=== PATIENT | female | born 1995 | race Caucasian/White ===

== ENCOUNTER → 2016-11-10 | Outpatient (REF) | payer OTHER, MEDICAID ==
[~2016-11-10] MED LIST: ACET50TA PO; ANUS2.5C2 TOP; COLA100C3 PO; IRON65TA PO; MOM30SS PO; MOTR200T44 PO; PRENTAB9 PO; ZOLO50TA PO; [UNRECOGNIZED DRUG - CODE] PO
== END ==
LOC: M SFHCPLAZ 15:45
PROVIDERS: ATTEND Nurse Practitioner Family
DX: Z00.00 Encounter for general adult medical examination without abnormal findings (principal); D50.9 Iron deficiency anemia, unspecified; E66.9 Obesity, unspecified; F53 Mental and behavioral disorders associated with the puerperium, not elsewhere classified; Z53.9 Procedure and treatment not carried out, unspecified reason

== ENCOUNTER → 2016-11-16 | Outpatient (REF) | payer OTHER, MEDICAID ==
[2016-11-16 16:05] LABS: BASO % 0.3 % (0.0-1.0); EOS # 0.2 K/mm3 (0.0-0.50); EOS % 2.3 % (0.0-3.0); LARGE UNSTAINED CELL # 0.2 K/mm3 (0.0-0.4); LARGE UNSTAINED CELL % 1.8 % (0.0-4.0); LYMPH # 2.8 K/mm3 (1.5-6.5); LYMPH % 32.8 % (24.0-44.0); MEAN CORPUSCULAR HEMOGLOBIN 31.1 pg (27.0-33.0); MEAN CORPUSCULAR HGB CONC 33.8 g/dl (32.0-36.5); MEAN CORPUSCULAR VOLUME 91.8 fl (80.0-96.0); MONO # 0.4 K/mm3 (0.0-0.8); MONO % 4.9 % (0.0-5.0); NEUTROPHILS # 4.7 K/mm3 (1.8-7.7); PLATELET COUNT, AUTOMATED 327 k/mm3 (150-450); RED CELL DISTRIBUTION WIDTH 12.9 % (11.5-14.5); WHITE BLOOD COUNT 8.1 K/mm3 (4.0-10.0)
[2016-11-16 16:15] LABS: ALBUMIN 3.9 GM/DL (3.2-5.2); ALBUMIN/GLOBULIN RATIO 1.15 (1.00-1.93); ALKALINE PHOSPHATASE 68 U/L (45-117); ALT/SGPT 23 U/L (12-78); ANION GAP 5 MEQ/L (8-16); AST/SGOT 14 U/L (15-37); BILIRUBIN,TOTAL 0.7 MG/DL (0.2-1.0); BLOOD UREA NITROGEN 12 MG/DL (7-18); CALCIUM LEVEL 8.8 MG/DL (8.5-10.1); CARBON DIOXIDE LEVEL 28 MEQ/L (21-32); CHLORIDE LEVEL 107 MEQ/L (98-107); CREATININE FOR GFR 0.56 MG/DL (0.55-1.02); GLUCOSE, FASTING 81 MG/DL (70-105); POTASSIUM SERUM 4.1 MEQ/L (3.5-5.1); SODIUM LEVEL 140 MEQ/L (136-145); TOTAL PROTEIN 7.3 GM/DL (6.4-8.2)
== END ==
LOC: M SFHCPLAZ 14:00
PROVIDERS: ATTEND Nurse Practitioner Family
DX: Z00.00 Encounter for general adult medical examination without abnormal findings (principal); D50.9 Iron deficiency anemia, unspecified; E66.9 Obesity, unspecified; F53 Mental and behavioral disorders associated with the puerperium, not elsewhere classified

== ENCOUNTER → 2016-12-08 | Outpatient (REF) | payer OTHER | LOC: M SFHCPLAZ 10:18 | PROVIDERS: ATTEND Nurse Practitioner Family | DX: J02.9 Acute pharyngitis, unspecified (principal) ==

== ENCOUNTER → 2016-12-30 | Outpatient (CLI) | payer OTHER ==
[2016-12-30 15:55] LABS: ALBUMIN 3.9 GM/DL (3.2-5.2); ALBUMIN/GLOBULIN RATIO 1.08 (1.00-1.93); ALKALINE PHOSPHATASE 77 U/L (45-117); ALT/SGPT 21 U/L (12-78); ANION GAP 11 MEQ/L (8-16); AST/SGOT 12 U/L (15-37); BILIRUBIN,TOTAL 0.8 MG/DL (0.2-1.0); BLOOD UREA NITROGEN 11 MG/DL (7-18); CALCIUM LEVEL 9.3 MG/DL (8.5-10.1); CARBON DIOXIDE LEVEL 24 MEQ/L (21-32); CHLORIDE LEVEL 106 MEQ/L (98-107); CREATININE FOR GFR 0.61 MG/DL (0.55-1.02); GLUCOSE, FASTING 89 MG/DL (70-105); POTASSIUM SERUM 4.2 MEQ/L (3.5-5.1); SODIUM LEVEL 141 MEQ/L (136-145); TOTAL PROTEIN 7.5 GM/DL (6.4-8.2)
== END ==
LOC: M LAB 14:16
PROVIDERS: ATTEND Psychiatry & Neurology Neurology
DX: R51 Headache (principal)

== ENCOUNTER → 2017-03-20 | Outpatient (REF) | payer OTHER, MEDICAID ==
[~2017-03-20] MED LIST changes: -COLA100C3 PO; +COLA100C5 PO
== END ==
LOC: M LAB REF 17:07
PROVIDERS: ATTEND Specialist
DX: Z11.3 Encounter for screening for infections with a predominantly sexual mode of transmission (principal)

== ENCOUNTER → 2017-05-01 | Outpatient (REF) | payer OTHER, MEDICAID ==
[2017-05-01 20:38] LABS: BASO % 0.3 % (0.0-1.0); EOS # 0.1 10^3/uL (0.0-0.50); IMMATURE GRANULOCYTE % 0.4 % (0-0); LYMPH # 3.4 10^3/uL (1.5-6.5); LYMPH % 35.5 % (24.0-44.0); MEAN CORPUSCULAR HEMOGLOBIN 29.6 pg (27.0-33.0); MEAN CORPUSCULAR HGB CONC 32.7 g/dl (32.0-36.5); MEAN CORPUSCULAR VOLUME 90.5 fl (80.0-96.0); MONO # 0.6 10^3/uL (0.0-0.8); MONO % 6.3 % (0.0-5.0); NEUTROPHILS # 5.5 10^3/uL (1.8-7.7); NEUTROPHILS % 56.5 % (36.0-66.0); PLATELET COUNT, AUTOMATED 340 10^3/uL (150-450); RED CELL DISTRIBUTION WIDTH 13.7 % (11.5-14.5); WHITE BLOOD COUNT 9.7 10^3/uL (4.0-10.0)
[2017-05-01 20:40] LABS: ALBUMIN 3.7 GM/DL (3.2-5.2); ALBUMIN/GLOBULIN RATIO 1.09 (1.00-1.93); ALKALINE PHOSPHATASE 87 U/L (45-117); ALT/SGPT 83 U/L (12-78); ANION GAP 7 MEQ/L (8-16); AST/SGOT 26 U/L (15-37); BILIRUBIN,TOTAL 0.4 MG/DL (0.2-1.0); BLOOD UREA NITROGEN 11 MG/DL (7-18); CALCIUM LEVEL 8.8 MG/DL (8.5-10.1); CARBON DIOXIDE LEVEL 24 MEQ/L (21-32); CHLORIDE LEVEL 109 MEQ/L (98-107); CREATININE FOR GFR 0.59 MG/DL (0.55-1.02); FREE T4 0.86 NG/DL (0.78-1.33); GLUCOSE, FASTING 74 MG/DL (70-105); POTASSIUM SERUM 3.8 MEQ/L (3.5-5.1); SODIUM LEVEL 140 MEQ/L (136-145); TOTAL PROTEIN 7.1 GM/DL (6.4-8.2)
== END ==
LOC: M SFHCPLAZ 15:04
PROVIDERS: ATTEND Nurse Practitioner Family
DX: R53.83 Other fatigue (principal)

== ENCOUNTER → 2017-05-03 | Outpatient (REF) | payer OTHER, MEDICAID | LOC: M LAB REF 17:03 | PROVIDERS: ATTEND Obstetrics & Gynecology | DX: Z11.3 Encounter for screening for infections with a predominantly sexual mode of transmission (principal) ==

== ENCOUNTER 2017-05-31 11:30 | Emergency (ER) | payer OTHER, MEDICAID ==
[~2017-05-31] VITALS: Ht 154.9 cm; Wt 71.8 kg
[2017-05-31] MEDS ORDERED: SERT25TA88 (11:38)
[2017-05-31] MEDS ORDERED: ZONI100C2 (11:38)
[2017-05-31] MEDS ORDERED: BACT800T5 PO (13:05)
[2017-05-31 13:15] VITALS: BP 120/76
== END 2017-05-31 13:16 | disposition home or self-care (01) ==
LOC: M ED 11:30
DX: L03.115 Cellulitis of right lower limb (principal)

== ENCOUNTER 2017-06-14 10:30 | Outpatient (RCR) | payer OTHER, MEDICAID | END 2017-07-09 | LOC: M PT 10:30 | DX: Z51.89 Encounter for other specified aftercare (principal); M54.6 Pain in thoracic spine; M25.561 Pain in right knee; M25.562 Pain in left knee; M25.571 Pain in right ankle and joints of right foot; M25.572 Pain in left ankle and joints of left foot; G56.03 Carpal tunnel syndrome, bilateral upper limbs | CPT/HCPCS: 97110 ==

== ENCOUNTER → 2017-06-14 | Outpatient (CLI) | payer OTHER, MEDICAID ==
[~2017-06-14] MED LIST changes: +BACT800T5 PO; +SERT25TA88; +ZONI100C2
--- NOTE | 2017-06-15 06:42 | REP ---
THORACIC SPINE: CLINICAL: Pain. TECHNIQUE: AP, lateral and swimmer's views of the thoracic spine. FINDINGS: Alignment and kyphosis maintained. Vertebral bodies are intact. No acute fracture/compression injury or subluxation. No degenerative changes are appreciated. No obvious congenital abnormalities noted. IMPRESSION: Normal age appropriate thoracic spine radiograph series. Signed by Gustabo Garvey MD 06/16/2017 08:53 A
== END ==
LOC: M RAD 12:20
PROVIDERS: ATTEND Nurse Practitioner Family
DX: M54.6 Pain in thoracic spine (principal)

== ENCOUNTER 2017-07-09 13:14 | Emergency (ER) | payer OTHER, MEDICAID ==
[2017-07-09] MEDS: ONDANSETRON 4 MG ORAL DISINTEGRATING TAB (S0181) PO (16:35)
[2017-07-09 16:53] LABS: BASO % 0.2 % (0.0-1.0); EOS # 0.1 10^3/uL (0.0-0.50); EOS % 1.4 % (0.0-3.0); HEMATOCRIT 37.3 % (36.0-47.0); HEMOGLOBIN 12.1 g/dl (12.0-16.0); IMMATURE GRANULOCYTE % 0.3 % (0-0); LYMPH # 3.2 10^3/uL (1.5-6.5); LYMPH % 34.1 % (24.0-44.0); MEAN CORPUSCULAR HEMOGLOBIN 29.7 pg (27.0-33.0); MEAN CORPUSCULAR HGB CONC 32.4 g/dl (32.0-36.5); MEAN CORPUSCULAR VOLUME 91.6 fl (80.0-96.0); MONO # 0.6 10^3/uL (0.0-0.8); MONO % 6.1 % (0.0-5.0); NEUTROPHILS # 5.4 10^3/uL (1.8-7.7); NEUTROPHILS % 57.9 % (36.0-66.0); PLATELET COUNT, AUTOMATED 281 10^3/uL (150-450); RED BLOOD COUNT 4.07 10^6/uL (4.00-5.40); RED CELL DISTRIBUTION WIDTH 13.2 % (11.5-14.5); WHITE BLOOD COUNT 9.4 10^3/uL (4.0-10.0)
[2017-07-09 17:16] LABS: ALBUMIN 3.6 GM/DL (3.2-5.2); ALBUMIN/GLOBULIN RATIO 1.13 (1.00-1.93); ALKALINE PHOSPHATASE 56 U/L (45-117); ALT/SGPT 22 U/L (12-78); ANION GAP 8 MEQ/L (8-16); AST/SGOT 32 U/L (7-37); BILIRUBIN,DIRECT 0.1 MG/DL (0.0-0.2); BILIRUBIN,TOTAL 0.5 MG/DL (0.2-1.0); BLOOD UREA NITROGEN 16 MG/DL (7-18); CALCIUM LEVEL 8.4 MG/DL (8.5-10.1); CARBON DIOXIDE LEVEL 27 MEQ/L (21-32); CHLORIDE LEVEL 106 MEQ/L (98-107); CREATININE FOR GFR 0.57 MG/DL (0.55-1.02); GLUCOSE, FASTING 83 MG/DL (70-105); LIPASE 81 U/L (73-393); POTASSIUM SERUM 4.3 MEQ/L (3.5-5.1); SODIUM LEVEL 141 MEQ/L (136-145); TOTAL PROTEIN 6.8 GM/DL (6.4-8.2); VALPROIC ACID (DEPAKOTE) 95.7 UG/ML (50.0-100.0)
[2017-07-09] MEDS: metroNIDAZOLE (FLAGYL) 500 MG TAB PO (18:12)
[2017-07-09 19:54] LABS: CHLAMYDIA DNA AMPLIFICATION NEGATIVE (NEGATIVE); GC DNA AMPLIFICATION NEGATIVE (NEGATIVE)
== END 2017-07-09 18:14 | disposition home or self-care (01) ==
LOC: M ED 13:14
DX: N76.0 Acute vaginitis (principal); A08.4 Viral intestinal infection, unspecified; F33.9 Major depressive disorder, recurrent, unspecified; Z79.899 Other long term (current) drug therapy
CPT/HCPCS: 83690

== ENCOUNTER 2017-07-11 11:23 | Outpatient (RCR) | payer OTHER, MEDICAID | END 2017-08-09 | LOC: M PT 11:23 → M OT 07-13 10:45 | DX: Z51.89 Encounter for other specified aftercare (principal); M54.6 Pain in thoracic spine; G56.03 Carpal tunnel syndrome, bilateral upper limbs | CPT/HCPCS: 97110 ==

== ENCOUNTER → 2017-08-16 | Outpatient (REF) | payer OTHER, MEDICAID ==
[2017-08-16 16:06] LABS: CHLAMYDIA DNA AMPLIFICATION NEGATIVE (NEGATIVE); GC DNA AMPLIFICATION NEGATIVE (NEGATIVE)
== END ==
LOC: M LAB REF 12:59
DX: Z11.3 Encounter for screening for infections with a predominantly sexual mode of transmission (principal)

== ENCOUNTER → 2017-09-07 | Outpatient (CLI) | payer OTHER, MEDICAID | LOC: M RAD 09:26 | DX: N83.291 Other ovarian cyst, right side (principal); N83.02 Follicular cyst of left ovary; Q51.3 Bicornate uterus | CPT/HCPCS: 76856 ==

== ENCOUNTER 2017-10-22 12:54 | Emergency (ER) | payer OTHER, MEDICAID | END 2017-10-22 14:21 | disposition home or self-care (01) | LOC: M ED 12:54 | DX: S62.347A Nondisplaced fracture of base of fifth metacarpal bone, left hand, initial encounter for closed fracture (principal); W22.09XA Striking against other stationary object, initial encounter; Y92.89 Other specified places as the place of occurrence of the external cause | CPT/HCPCS: 73130 ==

== ENCOUNTER 2018-03-12 12:18 | Emergency (ER) | payer OTHER, MEDICAID ==
[2018-03-12 13:16] LABS: KETONE, URINE AUTO RFX NEGATIVE (NEGATIVE); MUCUS, URINE RFX SMALL (NEGATIVE); NITRITE, URINE AUTO RFX NEGATIVE (NEGATIVE); RBC, URINE AUTO RFX 2 /HPF (0-3); SPECIFIC GRAVITY UR AUTO RFX 1.023 (1.002-1.035); SQUAM EPITHELIAL CELL UR AURFX 4 /HPF (0-6); WBC, URINE AUTO RFX 9 /HPF (0-3)
[2018-03-12] MEDS: ACETAMINOPHEN TAB 650MG DOSE (2X325MG) PO (13:36)
[2018-03-12] MEDS: NS 1,000 ML IV (13:36)
[2018-03-12 13:37] LABS: LEUKOCYTE ESTERASE UR AUTO RFX 3+ (NEGATIVE)
[2018-03-12 14:14] LABS: HCG, SERUM QUANTITATIVE 66775 MIU/ML
== END 2018-03-12 16:39 | disposition home or self-care (01) ==
LOC: M ED 12:18
DX: O26.891 Other specified pregnancy related conditions, first trimester (principal); M54.5 Low back pain; Z3A.01 Less than 8 weeks gestation of pregnancy
CPT/HCPCS: 76801

== ENCOUNTER 2018-03-19 07:28 | Emergency (ER) | payer OTHER, MEDICAID ==
[2018-03-19 08:11] LABS: BASO % 0.2 % (0.0-1.0); EOS # 0.1 10^3/uL (0.0-0.50); EOS % 0.6 % (0.0-3.0); HEMATOCRIT 33.8 % (36.0-47.0); HEMOGLOBIN 11.4 g/dl (12.0-15.5); IMMATURE GRANULOCYTE % 0.5 % (0-3.0); LYMPH % 24.9 % (24.0-44.0); MEAN CORPUSCULAR HEMOGLOBIN 30.2 pg (27.0-33.0); MEAN CORPUSCULAR HGB CONC 33.7 g/dl (32.0-36.5); MEAN CORPUSCULAR VOLUME 89.4 fl (80.0-96.0); MONO # 0.5 10^3/uL (0.0-0.8); MONO % 5.6 % (0.0-5.0); NEUTROPHILS # 5.5 10^3/uL (1.8-7.7); NEUTROPHILS % 68.2 % (36.0-66.0); PLATELET COUNT, AUTOMATED 259 10^3/uL (150-450); RED BLOOD COUNT 3.78 10^6/uL (4.00-5.40); RED CELL DISTRIBUTION WIDTH 13.2 % (11.5-14.5)
[2018-03-19 08:17] LABS: AMORPHOUS SEDIMENT RFX SMALL (NEGATIVE); KETONE, URINE AUTO RFX NEGATIVE (NEGATIVE); MUCUS, URINE RFX SMALL (NEGATIVE); NITRITE, URINE AUTO RFX NEGATIVE (NEGATIVE); RBC, URINE AUTO RFX 5 /HPF (0-3); SPECIFIC GRAVITY UR AUTO RFX 1.023 (1.002-1.035); SQUAM EPITHELIAL CELL UR AURFX 13 /HPF (0-6)
[2018-03-19 08:20] LABS: LEUKOCYTE ESTERASE UR AUTO RFX 3+ (NEGATIVE); WBC, URINE AUTO RFX 21 /HPF (0-3)
[2018-03-19 08:49] LABS: ANION GAP 11 MEQ/L (8-16); BLOOD UREA NITROGEN 10 MG/DL (7-18); CALCIUM LEVEL 8.7 MG/DL (8.5-10.1); CARBON DIOXIDE LEVEL 20 MEQ/L (21-32); CHLORIDE LEVEL 109 MEQ/L (98-107); CREATININE FOR GFR 0.55 MG/DL (0.55-1.30); GLOMERULAR FILTRATION RATE > 60.0 (>60); GLUCOSE, FASTING 108 MG/DL (70-100); HCG, SERUM QUANTITATIVE 88975 MIU/ML; POTASSIUM SERUM 3.4 MEQ/L (3.5-5.1); SODIUM LEVEL 140 MEQ/L (136-145)
[2018-03-19] MEDS: NITROFURANTOIN (MACROBID) 100 MG CAP PO (08:59)
== END 2018-03-19 09:05 | disposition home or self-care (01) ==
LOC: M ED 07:28
DX: O20.9 Hemorrhage in early pregnancy, unspecified (principal); O23.41 Unspecified infection of urinary tract in pregnancy, first trimester; O36.8991 Maternal care for other specified fetal problems, unspecified trimester, fetus 1; Z3A.08 8 weeks gestation of pregnancy
CPT/HCPCS: 76801

== ENCOUNTER → 2018-03-27 | Outpatient (CLI) | payer OTHER, MEDICAID ==
[2018-03-27 14:03] LABS: BASO % 0.1 % (0.0-1.0); EOS # 0.1 10^3/uL (0.0-0.50); EOS % 0.8 % (0.0-3.0); HEMATOCRIT 35.6 % (36.0-47.0); HEMOGLOBIN 11.9 g/dl (12.0-15.5); IMMATURE GRANULOCYTE % 0.5 % (0-3.0); LYMPH # 2.2 10^3/uL (1.5-6.5); MEAN CORPUSCULAR HEMOGLOBIN 30.4 pg (27.0-33.0); MEAN CORPUSCULAR HGB CONC 33.4 g/dl (32.0-36.5); MONO # 0.4 10^3/uL (0.0-0.8); MONO % 4.5 % (0.0-5.0); NEUTROPHILS % 69.1 % (36.0-66.0); PLATELET COUNT, AUTOMATED 286 10^3/uL (150-450); RED BLOOD COUNT 3.91 10^6/uL (4.00-5.40); RED CELL DISTRIBUTION WIDTH 13.4 % (11.5-14.5); WHITE BLOOD COUNT 8.7 10^3/uL (4.0-10.0)
[2018-03-27 15:48] LABS: CHLAMYDIA DNA AMPLIFICATION NEGATIVE (NEGATIVE); GC DNA AMPLIFICATION NEGATIVE (NEGATIVE)
[2018-03-28 10:45] LABS: HBsAg Prenatal NEGATIVE (NEGATIVE); HIV 1&2 SCREEN CENTAUR NEGATIVE (NEGATIVE); RUBELLA IgG QUALITATIVE IMMUNE (IMMUNE)
[2018-03-28 10:45] LABS: HEPATITIS C VIRUS ABY INDEX 0.1 INDEX (<0.8)
== END ==
LOC: M SMT 11:29
DX: Z34.81 Encounter for supervision of other normal pregnancy, first trimester (principal); Z3A.09 9 weeks gestation of pregnancy
CPT/HCPCS: 86762

== ENCOUNTER 2018-05-11 07:11 | Emergency (ER) | payer OTHER, MEDICAID ==
[2018-05-11 08:20] LABS: KETONE, URINE AUTO RFX NEGATIVE (NEGATIVE); MUCUS, URINE RFX SMALL (NEGATIVE); NITRITE, URINE AUTO RFX NEGATIVE (NEGATIVE); RBC, URINE AUTO RFX 0 /HPF (0-3); SPECIFIC GRAVITY UR AUTO RFX 1.019 (1.002-1.035); SQUAM EPITHELIAL CELL UR AURFX 11 /HPF (0-6); WBC, URINE AUTO RFX 6 /HPF (0-3)
[2018-05-11 08:36] LABS: LEUKOCYTE ESTERASE UR AUTO RFX 3+ (NEGATIVE)
[2018-05-11 09:37] LABS: CHLAMYDIA DNA AMPLIFICATION NEGATIVE (NEGATIVE); GC DNA AMPLIFICATION NEGATIVE (NEGATIVE)
== END 2018-05-11 08:54 | disposition home or self-care (01) ==
LOC: M ED 07:11
DX: O23.42 Unspecified infection of urinary tract in pregnancy, second trimester (principal); O23.592 Infection of other part of genital tract in pregnancy, second trimester; O26.92 Pregnancy related conditions, unspecified, second trimester; Z3A.16 16 weeks gestation of pregnancy; O99.342 Other mental disorders complicating pregnancy, second trimester; Z79.899 Other long term (current) drug therapy
CPT/HCPCS: 81001

== ENCOUNTER 2018-05-14 11:47 | Emergency (ER) | payer OTHER, MEDICAID ==
[2018-05-14] MEDS: diphenhydrAMINE INJ 50MG/ML VIAL (J1200) IV (15:40)
[2018-05-14] MEDS: METOCLOPRAMIDE INJ 10MG/2ML VIAL (J2765) IV (15:40)
[2018-05-14] MEDS: NS 1,000 ML IV (15:40)
== END 2018-05-14 17:15 | disposition home or self-care (01) ==
LOC: M ED 11:47
DX: O99.351 Diseases of the nervous system complicating pregnancy, first trimester (principal); G43.909 Migraine, unspecified, not intractable, without status migrainosus; Z3A.00 Weeks of gestation of pregnancy not specified
CPT/HCPCS: J1200

== ENCOUNTER 2018-05-22 07:27 | Emergency (ER) | payer OTHER, MEDICAID ==
[2018-05-22] MEDS: NS 1,000 ML IV (08:07)
[2018-05-22 08:22] LABS: BASO % 0.1 % (0.0-1.0); EOS # 0.1 10^3/uL (0.0-0.50); EOS % 0.8 % (0.0-3.0); HEMATOCRIT 32.7 % (36.0-47.0); IMMATURE GRANULOCYTE % 1.2 % (0-3.0); KETONE, URINE AUTO RFX NEGATIVE (NEGATIVE); LEUKOCYTE ESTERASE UR AUTO RFX NEGATIVE (NEGATIVE); LYMPH % 21.4 % (24.0-44.0); MEAN CORPUSCULAR HEMOGLOBIN 30.2 pg (27.0-33.0); MEAN CORPUSCULAR HGB CONC 33.6 g/dl (32.0-36.5); MEAN CORPUSCULAR VOLUME 89.8 fl (80.0-96.0); MONO # 0.3 10^3/uL (0.0-0.8); MONO % 3.7 % (0.0-5.0); MUCUS, URINE RFX SMALL (NEGATIVE); NEUTROPHILS # 6.7 10^3/uL (1.8-7.7); NEUTROPHILS % 72.8 % (36.0-66.0); NITRITE, URINE AUTO RFX NEGATIVE (NEGATIVE); PLATELET COUNT, AUTOMATED 249 10^3/uL (150-450); RBC, URINE AUTO RFX 1 /HPF (0-3); RED BLOOD COUNT 3.64 10^6/uL (4.00-5.40); RED CELL DISTRIBUTION WIDTH 13.1 % (11.5-14.5); SQUAM EPITHELIAL CELL UR AURFX 1 /HPF (0-6); WBC, URINE AUTO RFX 3 /HPF (0-3); WHITE BLOOD COUNT 9.2 10^3/uL (4.0-10.0)
[2018-05-22 08:53] LABS: ANION GAP 8 MEQ/L (8-16); BLOOD UREA NITROGEN 8 MG/DL (7-18); CALCIUM LEVEL 9.1 MG/DL (8.5-10.1); CARBON DIOXIDE LEVEL 23 MEQ/L (21-32); CHLORIDE LEVEL 107 MEQ/L (98-107); CREATININE FOR GFR 0.46 MG/DL (0.55-1.30); FREE T4 0.88 NG/DL (0.76-1.46); GLOMERULAR FILTRATION RATE > 60.0 (>60); GLUCOSE, FASTING 112 MG/DL (70-100); POTASSIUM SERUM 3.6 MEQ/L (3.5-5.1); SODIUM LEVEL 138 MEQ/L (136-145)
[2018-05-22 14:42] LABS: BEDSIDE GLUCOSE 127 MG/DL (70-105)
== END 2018-05-22 09:43 | disposition home or self-care (01) ==
LOC: M ED 07:27
DX: O26.892 Other specified pregnancy related conditions, second trimester (principal); R42 Dizziness and giddiness; O99.342 Other mental disorders complicating pregnancy, second trimester; F32.9 Major depressive disorder, single episode, unspecified; O99.351 Diseases of the nervous system complicating pregnancy, first trimester; G43.909 Migraine, unspecified, not intractable, without status migrainosus; Z3A.17 17 weeks gestation of pregnancy
CPT/HCPCS: 84443

== ENCOUNTER → 2018-06-04 | Outpatient (CLI) | payer OTHER, MEDICAID | LOC: M RAD 09:38 | DX: Z34.82 Encounter for supervision of other normal pregnancy, second trimester (principal); Z3A.19 19 weeks gestation of pregnancy | CPT/HCPCS: 76811 ==

== ENCOUNTER → 2018-07-17 | Outpatient (CLI) | payer OTHER, MEDICAID ==
[~2018-07-17] MED LIST changes: -ACET50TA PO; +CENTCHW4 PO; +CLEO300C2 PO; +DEPA1TAB3 PO; +FLAG500T PO; +MACR100C43 PO; +MAPA500T2 PO; +PRENCHW PO; +PRENTAB29 PO; +REGL10TA6 PO; +ZOFR4TAB14 PO
--- NOTE | 2018-07-18 06:13 | REP ---
Clinical: Anatomical evaluation. Comparison: 06/04/2018 . Findings: Examination demonstrates a single live intrauterine in cephalic presentation. motion is identified by technologist. Placenta is noted anterior and grade grade 1 without evidence for placenta previa or abruption. Amniotic fluid volume is normal. Cervix measures 4.3 cm in length and appears closed. No evidence for nuchal cord. Gestational age by LMP 25 weeks 1 day with MARTY 10/29/1989 . Gestational age by current measurements 26 weeks 3 days with MARTY 10/20/2018 . FHR equals 157 beats per minute. Estimated weight 935 grams ( 82nd percentile). Anatomical assessment demonstrates normal structures including cranium, choroid plexus, cavum, cerebellum/posterior fossa, facial features, lungs, four-chamber heart/ventricular outflow tracts, diaphragm, stomach, cord insertion/three-vessel cord, kidneys/bladder, and extremities. Impression: Single live intrauterine in cephalic presentation demonstrating appropriate interval growth. 2. In conjunction with prior examination anatomical assessment is complete and normal. Electronically Signed by Gustabo Garvey MD 07/18/2018 06:05 A
== END ==
LOC: M RAD 10:00
PROVIDERS: ATTEND Specialist
DX: Z36.2 Encounter for other antenatal screening follow-up (principal); Z3A.25 25 weeks gestation of pregnancy

== ENCOUNTER → 2018-08-01 | Outpatient (CLI) | payer OTHER, MEDICAID ==
[~2018-08-01] MED LIST changes: +24Hr Holter Monitor XX
[2018-08-01 13:31] LABS: BASO % 0.2 % (0.0-1.0); EOS # 0.1 10^3/uL (0.0-0.50); EOS % 0.7 % (0.0-3.0); HEMATOCRIT 32.5 % (36.0-47.0); HEMOGLOBIN 10.8 g/dl (12.0-15.5); LYMPH # 2.1 10^3/uL (1.5-6.5); LYMPH % 17.5 % (24.0-44.0); MEAN CORPUSCULAR HEMOGLOBIN 31.3 pg (27.0-33.0); MEAN CORPUSCULAR HGB CONC 33.2 g/dl (32.0-36.5); MEAN CORPUSCULAR VOLUME 94.2 fl (80.0-96.0); MONO # 0.5 10^3/uL (0.0-0.8); MONO % 3.9 % (0.0-5.0); NEUTROPHILS % 76.3 % (36.0-66.0); PLATELET COUNT, AUTOMATED 250 10^3/uL (150-450); RED BLOOD COUNT 3.45 10^6/uL (4.00-5.40); WHITE BLOOD COUNT 11.7 10^3/uL (4.0-10.0)
== END ==
LOC: M LAB 12:12
PROVIDERS: ATTEND Specialist
DX: Z34.82 Encounter for supervision of other normal pregnancy, second trimester (principal); Z3A.00 Weeks of gestation of pregnancy not specified

== ENCOUNTER 2018-08-03 09:10 | Emergency (ER) | payer OTHER, MEDICAID ==
[~2018-08-03] VITALS: Ht 154.9 cm; Wt 90.9 kg
[~2018-08-03 09:10] MED LIST changes: -24Hr Holter Monitor XX
[2018-08-03 09:56] LABS: BASO % 0.2 % (0.0-1.0); EOS # 0.1 10^3/uL (0.0-0.50); EOS % 0.7 % (0.0-3.0); HEMOGLOBIN 10.5 g/dl (12.0-15.5); LYMPH # 1.7 10^3/uL (1.5-6.5); LYMPH % 14.7 % (24.0-44.0); MEAN CORPUSCULAR HEMOGLOBIN 30.9 pg (27.0-33.0); MEAN CORPUSCULAR HGB CONC 32.8 g/dl (32.0-36.5); MEAN CORPUSCULAR VOLUME 94.1 fl (80.0-96.0); MONO # 0.6 10^3/uL (0.0-0.8); MONO % 4.7 % (0.0-5.0); NEUTROPHILS # 9.3 10^3/uL (1.8-7.7); NEUTROPHILS % 78.3 % (36.0-66.0); PLATELET COUNT, AUTOMATED 248 10^3/uL (150-450); WHITE BLOOD COUNT 11.8 10^3/uL (4.0-10.0)
[2018-08-03 10:30] LABS: ALBUMIN 2.7 GM/DL (3.2-5.2); ALT/SGPT 12 U/L (12-78); BILIRUBIN,DIRECT < 0.1 MG/DL (0.0-0.2); BILIRUBIN,TOTAL 0.3 MG/DL (0.2-1.0); BLOOD UREA NITROGEN 9 MG/DL (7-18); CALCIUM LEVEL 8.6 MG/DL (8.5-10.1); CARBON DIOXIDE LEVEL 22 MEQ/L (21-32); CHLORIDE LEVEL 107 MEQ/L (98-107); CREATININE FOR GFR 0.46 MG/DL (0.55-1.30); GLOMERULAR FILTRATION RATE > 60.0 (>60); GLUCOSE, FASTING 93 MG/DL (70-100); POTASSIUM SERUM 3.8 MEQ/L (3.5-5.1); SODIUM LEVEL 139 MEQ/L (136-145); TOTAL PROTEIN 6.5 GM/DL (6.4-8.2)
[2018-08-03] MEDS ORDERED: 24Hr Holter Monitor XX (10:41)
--- NOTE | 2018-08-03 10:50 | ECGEPIP ---
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
[2018-08-03 11:05] VITALS: BP 120/61
== END 2018-08-03 11:13 | disposition home or self-care (01) ==
LOC: M ED 09:10
DX: O99.89 Other specified diseases and conditions complicating pregnancy, childbirth and the puerperium (principal); R55 Syncope and collapse; Z3A.27 27 weeks gestation of pregnancy; O99.342 Other mental disorders complicating pregnancy, second trimester; F41.9 Anxiety disorder, unspecified

== ENCOUNTER → 2018-08-03 | Outpatient (CLI) | payer OTHER, MEDICAID ==
--- NOTE | 2018-08-04 15:31 | HOLTMON ---
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 Diary Event: STANDING CHEST DISC 30 SECONDS--sinus tachycardia 109 bpm, no change in ST configuration. Diary Event: STANDING CHEST DISC 30 SECONDS--sinus tachycardia 109 bpm, no change in ST configuration. Diary Event: SITTING ARM PAIN 30 SECONDS--normal sinus rhythm, no change in ST configuration. Heart rate variability was normal. There was minimal ectopy. No runs. No significant ST events or pauses. No atrial fibrillation was seen. Unremarkable Holter monitor. Electronically Signed On 08-04-2018 15:30:59 EST by James Yañez
== END ==
LOC: M EKG 11:20
PROVIDERS: ATTEND Emergency Medicine
DX: R55 Syncope and collapse (principal)

== ENCOUNTER → 2018-10-04 | Outpatient (REF) | payer OTHER, MEDICAID ==
[~2018-10-04] MED LIST changes: +24Hr Holter Monitor XX
== END ==
LOC: M LAB REF 16:56
PROVIDERS: ATTEND Obstetrics & Gynecology
DX: Z34.83 Encounter for supervision of other normal pregnancy, third trimester (principal)

== ENCOUNTER → 2018-10-10 | Outpatient (CLI) | payer OTHER, MEDICAID ==
--- NOTE | 2018-10-10 14:32 | REP ---
Clinical: Growth evaluation. Comparison: 07/17/2018 . Findings: Examination demonstrates a single live intrauterine in cephalic presentation. motion is identified by technologist. Placenta is noted anterior and grade grade III without evidence for placenta previa or abruption. Amniotic fluid volume is normal. Cervix appears closed. No evidence for nuchal cord. Gestational age by LMP 37 weeks 2 days with MARTY 10/29/2018 . Gestational age by current measurements 38 weeks 5 days with MARTY 10/19/2018 . FHR equals 167 beats per minute. BPD 9.2 cm 37 weeks 2 days HC 34.1 cm 39 weeks 2 days AC 36.4 cm 40 weeks 2 days FL 7.7 cm 39 weeks 1 day HL 6.4 cm 37 weeks 2 days HC/AC ratio 0.94 Estimated weight 3821 grams ( 94th percentile). Amniotic fluid index: 13.7 cm. Umbilical cord SD ratio: 1.74 (1.60 - 2.60). Impression: Single live advanced gestation in cephalic presentation. As compared with LMP, growth remains in normal range. Electronically Signed by Gustabo Garvey MD 10/10/2018 02:24 P
== END ==
LOC: M RAD 12:58
PROVIDERS: ATTEND Advanced Practice Midwife
DX: O26.843 Uterine size-date discrepancy, third trimester (principal); Z3A.38 38 weeks gestation of pregnancy

== ENCOUNTER 2018-10-20 03:02 | Inpatient (IN) | payer OTHER, MEDICAID ==
[~2018-10-20] VITALS: Ht 154.9 cm; Wt 98.8 kg
[2018-10-20] VITALS (48 sets, daily range): BP systolic 95–145; BP diastolic 48–76
[2018-10-20] MEDS ORDERED: LACTATED RINGER'S 1000 ML IV STA (03:59)
--- NOTE | 2018-10-20 04:17 | HPEPDOC ---
Obstetrical History & Physical General Date of Admission October 20, 2018 History of Present Illness Chief Complaint: Contractions, term Information Provided By: Patient Age: 23 : 2 Term: 1 Pre-term: 0 Abortions: 0 Livin Care Care: Good Care Dating Final EDC: Oct 29, 2018 Final EDC by: LMP EGA at Admission: 38 (+5) Antepartum Course Height (inches): 61 Pre- weight (lbs.): 163 Admission Weight (lbs.): 219 Past Medical History Past Obstetrical History : Past Obstetrical History: Primgravida (2015) Type of Delivery: Spontaneous Vaginal Del. 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: No pertinent history Past Medical History Medical History hx depression Surgical History: Tonsilectomy Family History Significant Family History: Cancer, Diabetes, Heart disease, Hypertension Social History Marital Status: Family situation: Spouse/partner home Psychosocial History: Other ( depression) * Smoker: non-smoker Alcohol: Denies Drugs: denies Imunizations Tdap status: current Allergies Coded Allergies: MS - No Known Drug Allergy (Verified Allergy, Unknown, 05/14/18) Medications Scheduled Pnv No.118/Iron Fumarate/FA ( 19 Chewable Tablet) 1 Chw Chw, 1 TAB PO DAILY Physical Examination Physical Examination GENERAL: Alert and oriented times three. BREAST: . ABDOMEN: Gravid and non-tender to touch. FETUS: Is vertex (VTX) by sterile vaginal examination (SVE), fetus is vertex (VTX) by Harry. HEART RATE: Regular rate and rhythm. LUNGS: Clear to auscultation (CTA). EXTREMITIES: No edema. No clonus. Deep tendon reflexes (DTRs) + 2. Pertinent Laboratoy Data Blood Type: O+ RBC Antibody Screen: Negative HIV: Negative Hepatitis B: Negative Hepatitis C: Negative Rapid Plasma Reagin: Nonreactive Rubella: Immune Chlamydia/Gonorrhea: Negative Group B Streptococcus: Negative Quad Screen Test: Declined Glucose Tolerance Test: 126 Anatomy Ultrasound Ultrasound Date: Jun 04, 2018 Placenta Location: Anterior Normal Anatomy: Yes Placenta Previa: No Estimated Weight (grams): 353 (>97%) Other Ultrasounds 03/27/18 dating 9w5d 07/17/18 f/u 935gm, 82% 4/3/19 growth EFW 3821gm, 94% Steroid Therapy Steroid Therapy: No Vaginal Examination Dilation: 3 cm (-4) Effacement: 80% Station: -2 Cervical Consistency: Soft Cervical Position: Posterior Presentation: Cephalic presentation Assessment Heart Rate (FHR): 145 Variability: Moderate Accelerations: Positive Decelerations: None Tocometer Contractions: Yes Frequency: irregular, every 3-7 min. Strength: palpated as mild Assessment/Plan Assessment Komal is a 23-year-old (G)2 para (P)1-0-0-1 at 38+5 weeks by 9-week ultrasound. Presents to Labor and Delivery (L&D) with complaints of UC and bloody show. Reports SVE and sweep in office today. Denies LOF, light bloody show. Fetus active. Plan Admit and orient. 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 Diet: clear liquids. Group B Streptococcus (GBS) negative Labs and intravenous (IV) per unit protocol. Counseled on Pitocin and induction of labor (IOL). Lactated Ringers (LR): Bolus 500 mL, then saline lock. Pt is planning an epidural for labor coping Anticipate normal spontaneous delivery (). C-S as appropriate. Katy Siddiqui CNM Oct 20, 2018 04:16
[2018-10-20 04:42] LABS: HEMATOCRIT 32.8 % (36.0-47.0); HEMOGLOBIN 10.7 g/dl (12.0-15.5); MEAN CORPUSCULAR HEMOGLOBIN 30.6 pg (27.0-33.0); MEAN CORPUSCULAR HGB CONC 32.6 g/dl (32.0-36.5); MEAN CORPUSCULAR VOLUME 93.7 fl (80.0-96.0); PLATELET COUNT, AUTOMATED 239 10^3/uL (150-450); WHITE BLOOD COUNT 12.7 10^3/uL (4.0-10.0)
[2018-10-20] MEDS ORDERED: LR 1,000 ML IV SCH (07:42)
[2018-10-20] MEDS ORDERED: OXYTOCIN DRIP 30 UNITS in APPROPRIATE DILUENT 1 EA IV SCH (07:45)
[2018-10-20] MEDS ORDERED: FENTANYL 2MCG/ML ROPIVACAINE 0.2% IN 0.9% NACL 100ML IVBAG As Ordered ONE (09:59)
[2018-10-20] MEDS ORDERED: EPIDURAL COMMENT XX SCH (11:15)
[2018-10-20] MEDS ORDERED: ONDANSETRON 4MG/2ML VIAL (J2405) IV PRN ×2 (11:15→17:30)
[2018-10-20] MEDS ORDERED: LACTATED RINGER'S 1000 ML IV PRN (11:15)
[2018-10-20] MEDS ORDERED: NALOXONE INJ 0.4 MG/1 ML VIAL (J2310) IV PRN (11:15)
[2018-10-20] MEDS ORDERED: EPIDURAL/PCA KEYS XX PRN (11:15)
[2018-10-20] MEDS ORDERED: REFRIGERATOR IV KEYS XX PRN (11:15)
[2018-10-20] MEDS ORDERED: diphenhydrAMINE INJ 50MG/ML VIAL (J1200) IV PRN (11:15)
[2018-10-20] MEDS ORDERED: FENTANYL/ROPIVACAINE/NACL BAG 100 ML EPIDURAL SCH (11:15)
[2018-10-20] MEDS: ePHEDrine SULFATE 25 MG/5 ML(5MG/ML) SYRINGE IV PRN ×3 (12:39→12:48)
[2018-10-20 17:06] LABS: CORD GAS ABE V -4.4; CORD GAS O2 SAT V 62.5 %; CORD GAS PCO2 V 40.1 mmHg; CORD GAS PH V 7.337 UNITS; CORD GAS PO2 V 25.8 mmHg; CORD GAS TCO2 V 22.2 MEQ/L
[2018-10-20] MEDS ORDERED: DIBUCAINE 1% OINTMENT 30GM TOP PRN (17:30)
[2018-10-20] MEDS ORDERED: RHOGAM 300 MCG (1500 IU) INJ (J2790) IM SCH (17:30)
[2018-10-20] MEDS ORDERED: METHYLERGONOVINE MALEATE 0.2 MG TAB PO PRN (17:30)
[2018-10-20] MEDS ORDERED: MEASLES,MUMPS,RUBELLA VACCINE INJ (MMR-II) (90707) SC SCH (17:30)
[2018-10-20] MEDS ORDERED: DOCUSATE SODIUM 100 MG CAP PO PRN (17:30)
[2018-10-20] MEDS ORDERED: OXYTOCIN DRIP 30 UNITS in APPROPRIATE DILUENT 1 EA IV ONE (17:30)
[2018-10-20] MEDS: IBUPROFEN 800 MG TAB PO PRN (20:09)
[2018-10-20] MEDS: ACETAMINOPHEN 500 MG TAB PO PRN (22:11)
[2018-10-21] VITALS (11 sets, daily range): BP systolic 98–133; BP diastolic 52–60
[2018-10-21] MEDS: IBUPROFEN 800 MG TAB PO PRN ×3 (03:55→20:05)
[2018-10-21 07:05] LABS: HEMATOCRIT 22.4 % (36.0-47.0); MEAN CORPUSCULAR HEMOGLOBIN 30.4 pg (27.0-33.0); MEAN CORPUSCULAR HGB CONC 32.6 g/dl (32.0-36.5); MEAN CORPUSCULAR VOLUME 93.3 fl (80.0-96.0); PLATELET COUNT, AUTOMATED 205 10^3/uL (150-450); WHITE BLOOD COUNT 14.4 10^3/uL (4.0-10.0)
[2018-10-21 07:22] LABS: HEMOGLOBIN 7.3 g/dl (12.0-15.5)
[2018-10-21] MEDS: PRENATAL VITAMINS CHEWABLE TABLET PO SCH (08:02)
[2018-10-21] MEDS: ACETAMINOPHEN 500 MG TAB PO PRN ×2 (08:02→21:55)
--- NOTE | 2018-10-21 09:15 | DN ---
DATE OF DELIVERY: 10/20/2018 PREDELIVERY DIAGNOSIS: 38 and 5/7 weeks gestation, labor. POSTDELIVERY DIAGNOSIS: Delivered. PROCEDURE: Spontaneous vaginal delivery. 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 Wilmer Siddiqui ANESTHESIA: Epidural. ESTIMATED BLOOD LOSS: 600 mL. FINDINGS: 8 pound 5 ounce male , Apgars 7 and 8. VENOUS BLOOD GAS: 7.33, base excess -4.4. DELIVERY SUMMARY: Short second stage. Patient with spontaneous delivery of an 8 pound 5 ounce male , Apgars 7 and 8, under epidural anesthesia. Loose nuchal cord times one was reduced. A moderate shoulder dystocia was encountered. The shoulders delivered with a combination of Patt maneuver, ramp maneuver and Wood's screw maneuver. The infant was handed to the mother. Cord was doubly clamped and cut. Placenta delivered spontaneously and appeared to be intact. The patient received IV Pitocin immediately after delivery of the placenta. There were no vaginal lacerations present. Sponge and needle counts were correct.
[2018-10-21] MEDS ORDERED: NS 1,000 ML IV SCH (10:20)
[2018-10-22] MEDS: IBUPROFEN 800 MG TAB PO PRN (05:50)
[2018-10-22] MEDS: ACETAMINOPHEN 500 MG TAB PO PRN (05:50)
[2018-10-22 05:52] VITALS: BP 114/55
[2018-10-22 07:09] LABS: HEMATOCRIT 26.5 % (36.0-47.0); HEMOGLOBIN 8.7 g/dl (12.0-15.5); MEAN CORPUSCULAR HEMOGLOBIN 30.6 pg (27.0-33.0); MEAN CORPUSCULAR HGB CONC 32.8 g/dl (32.0-36.5); MEAN CORPUSCULAR VOLUME 93.3 fl (80.0-96.0); PLATELET COUNT, AUTOMATED 210 10^3/uL (150-450); RED BLOOD COUNT 2.84 10^6/uL (4.00-5.40); WHITE BLOOD COUNT 11.6 10^3/uL (4.0-10.0)
[2018-10-22] MEDS: PRENATAL VITAMINS CHEWABLE TABLET PO SCH (07:38)
[2018-10-22] MEDS ORDERED: IBUP-1114 PO (09:35)
[2018-10-22] MEDS ORDERED: MAPA500T2 PO (09:35)
== END 2018-10-22 11:50 | disposition home or self-care (01) | DRG 807 ==
LOC: M LDO 03:02 → M LDI 04:36 → M OBS 20:10
PROVIDERS: ADMIT Advanced Practice Midwife; ATTEND Specialist
PROC: 10E0XZZ Delivery of Products of Conception, External Approach (ICD-10-PCS; principal; 2018-10-20)
PROC: 30233N1 Transfusion of Nonautologous Red Blood Cells into Peripheral Vein, Percutaneous Approach (ICD-10-PCS; 2018-10-20)
DX: O69.81X0 Labor and delivery complicated by cord around neck, without compression, not applicable or unspecified (principal); Z37.0 Single live birth; Z3A.39 39 weeks gestation of pregnancy; O66.0 Obstructed labor due to shoulder dystocia; O99.02 Anemia complicating childbirth; D64.9 Anemia, unspecified

== ENCOUNTER 2019-01-04 13:40 | Emergency (ER) | payer OTHER, MEDICAID ==
[~2019-01-04] VITALS: Ht 154.9 cm; Wt 86.4 kg
[~2019-01-04 13:40] MED LIST changes: +IBUP-1114 PO
[2019-01-04 15:02] LABS: BASO % 0.3 % (0.0-1.0); EOS # 0.1 10^3/uL (0.0-0.50); EOS % 1.4 % (0.0-3.0); HEMATOCRIT 37.8 % (36.0-47.0); HEMOGLOBIN 12.4 g/dl (12.0-15.5); LYMPH # 2.9 10^3/uL (1.5-6.5); LYMPH % 36.9 % (24.0-44.0); MEAN CORPUSCULAR HEMOGLOBIN 30.2 pg (27.0-33.0); MEAN CORPUSCULAR HGB CONC 32.8 g/dl (32.0-36.5); MONO # 0.5 10^3/uL (0.0-0.8); MONO % 6.4 % (0.0-5.0); NEUTROPHILS # 4.3 10^3/uL (1.8-7.7); NEUTROPHILS % 54.7 % (36.0-66.0); PLATELET COUNT, AUTOMATED 323 10^3/uL (150-450); RED BLOOD COUNT 4.11 10^6/uL (4.00-5.40); WHITE BLOOD COUNT 7.8 10^3/uL (4.0-10.0)
--- NOTE | 2019-01-04 15:18 | REP ---
Clinical: Left-sided chest pain . Comparison: None . Technique: PA and lateral. Findings: The mediastinum and cardiac silhouette are normal. The lung hannah are clear and without acute consolidation, effusion, or pneumothorax. The skeletal structures are intact and normal. Impression: 1. No acute cardiopulmonary process. Electronically Signed by Gustabo Garvey MD 01/04/2019 03:10 P
[2019-01-04 15:32] LABS: BLOOD UREA NITROGEN 14 MG/DL (7-18); CARBON DIOXIDE LEVEL 25 MEQ/L (21-32); CHLORIDE LEVEL 108 MEQ/L (98-107); CREATININE FOR GFR 0.61 MG/DL (0.55-1.30); GLOMERULAR FILTRATION RATE > 60.0 (>60); GLUCOSE, FASTING 85 MG/DL (70-100); POTASSIUM SERUM 4.6 MEQ/L (3.5-5.1); SODIUM LEVEL 139 MEQ/L (136-145)
[2019-01-04 15:42] VITALS: BP 113/58
--- NOTE | 2019-01-05 09:37 | ECGEPIP ---
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 Order Number: [id number] Reading MD: Olga Lidia Parr Measurements Intervals [place] Rate: 70 P: 44 [place]: 151 QRS: 39 QRSD: 84 T: 50 QT: 387 QTc: 419 Interpretive Statements SINUS RHYTHM DECREASED RATE 08/03/18 Electronically Signed on 01-05-2019 9:37:22 EDT by Olga Lidia Parr
== END 2019-01-04 15:59 | disposition home or self-care (01) ==
LOC: M ED 13:40
DX: R07.9 Chest pain, unspecified (principal); G43.909 Migraine, unspecified, not intractable, without status migrainosus

== ENCOUNTER → 2019-03-13 | Outpatient (REF) | payer OTHER, MEDICAID ==
[~2019-03-13] MED LIST changes: +SERT25TA21; -SERT25TA88; +ZONI100C17; -ZONI100C2
== END ==
LOC: M LAB REF 14:06
PROVIDERS: ATTEND Advanced Practice Midwife
DX: Z12.4 Encounter for screening for malignant neoplasm of cervix (principal)